=== PATIENT | female | born 1980 | race Caucasian/White ===

== ENCOUNTER 2017-10-05 13:51 | Emergency (ER) | payer OTHER ==
[~2017-10-05] VITALS: Ht 167.6 cm; Wt 71.9 kg
[2017-10-05] MEDS ORDERED: ATIVAN1 MG PO (14:37)
[2017-10-05 15:41] VITALS: BP 109/77
== END 2017-10-05 15:41 | disposition home or self-care (01) ==
LOC: EME 13:51
DX: F41.0 Panic disorder [episodic paroxysmal anxiety] (principal); F41.9 Anxiety disorder, unspecified; F17.200 Nicotine dependence, unspecified, uncomplicated
CPT/HCPCS: 99281; 99284